=== PATIENT | male | born 1970 ===

== ENCOUNTER 2022-08-13 06:46 | Day surgery (SDC) | payer OTHER ==
[~2022-08-13] VITALS: Ht 172.7 cm; Wt 111.1 kg
== END 2022-08-13 15:25 | disposition home or self-care (01) ==
LOC: CIR.AMB 06:46
PROVIDERS: ATTEND Orthopaedic Surgery
DX: M75.121 Complete rotator cuff tear or rupture of right shoulder, not specified as traumatic (principal); M75.21 Bicipital tendinitis, right shoulder; I10 Essential (primary) hypertension; Z20.822 Contact with and (suspected) exposure to COVID-19